=== PATIENT | female | born 1970 | race Hispanic/Latino ===

== ENCOUNTER 2019-05-04 04:08 | Emergency (ER) | payer MEDICARE ==
[2019-05-04 04:32] LABS: BASOPHILS % (AUTO) 0.6 % (0.0-5.0); EOSINOPHILS % (AUTO) 2.6 % (0.0-8.0); LYMPHOCYTES % (AUTO) 39.2 % (21.0-51.0); MEAN CORPUSCULAR HEMOGLOBIN 30.1 pg (27.0-33.0); MEAN CORPUSCULAR HGB CONC 34.3 g/dL (32.0-36.0); MEAN CORPUSCULAR VOLUME 87.7 fL (79-99); MONOCYTES % (AUTO) 8.3 % (3.0-13.0); NEUTROPHILS % (AUTO) 49.2 % (40.0-77.0); PLATELET COUNT (AUTO) 254 K/uL (130-400); RED BLOOD CELL COUNT(AUTO) 4.79 MIL/uL (4.00-5.50); RED CELL DISTRIBUTION WIDTH 12.4 % (11.0-15.5)
[2019-05-04] MEDS ORDERED: ASPIRIN 325 MG TABLET ONE (04:34)
[2019-05-04] MEDS ORDERED: FAMOTIDINE/PF 20 MG/2 ML VIAL IV ONE (04:35)
[2019-05-04 04:44] LABS: CREATININE 0.7 mg/dL (0.5-1.5); POTASSIUM 3.8 mmol/L (3.5-5.1)
[2019-05-04 04:45] LABS: INR 0.96 (0.85-1.15); PARTIAL THROMBOPLASTIN TIME 25.7 SEC (26.3-35.5); PROTHROMBIN TIME 10.1 SEC (9.6-11.6)
[2019-05-04 04:48] LABS: ALBUMIN 3.7 g/dL (3.5-5.0); BILIRUBIN,TOTAL 0.3 mg/dL (0.2-1.0); TOTAL PROTEIN, SERUM 7.7 g/dL (6.0-8.3)
[2019-05-04] MEDS ORDERED: ORPHENADRINE CITRATE 30 MG/ML ML ONE (05:23)
== END 2019-05-04 06:49 | disposition home or self-care (01) ==
LOC: EDH 04:08
DX: R07.89 Other chest pain (principal); R10.13 Epigastric pain; E11.9 Type 2 diabetes mellitus without complications; I10 Essential (primary) hypertension; I25.10 Atherosclerotic heart disease of native coronary artery without angina pectoris
CPT/HCPCS: 36415; 71045; 80053; 82550; 83690; 83880; 84484; 85025; 85610; 85730; 93005; 96374; 96375; 99285; J2360; J3490

== ENCOUNTER → 2019-05-28 | Outpatient (CLI) | payer MEDICARE | END | disposition home or self-care (01) | LOC: OIH 13:37 | PROVIDERS: ATTEND Internal Medicine | DX: M19.072 Primary osteoarthritis, left ankle and foot (principal); M19.071 Primary osteoarthritis, right ankle and foot; M77.52 Other enthesopathy of left foot and ankle; M77.51 Other enthesopathy of right foot and ankle; M19.042 Primary osteoarthritis, left hand; M19.041 Primary osteoarthritis, right hand | CPT/HCPCS: 73130; 73630 ==

== ENCOUNTER 2019-09-24 01:05 | Inpatient (IN) | payer MEDICARE ==
[2019-09-24 02:03] LABS: BASOPHILS % (AUTO) 0.2 % (0.0-5.0); HEMATOCRIT 43.5 % (36-48); LYMPHOCYTES % (AUTO) 13.8 % (21.0-51.0); MEAN CORPUSCULAR HEMOGLOBIN 29.8 pg (27.0-33.0); MEAN CORPUSCULAR HGB CONC 33.8 g/dL (32.0-36.0); MEAN CORPUSCULAR VOLUME 88.2 fL (79-99); MONOCYTES % (AUTO) 3.1 % (3.0-13.0); NEUTROPHILS % (AUTO) 82.7 % (40.0-77.0); PLATELET COUNT (AUTO) 191 K/uL (130-400); RED BLOOD CELL COUNT(AUTO) 4.93 MIL/uL (4.00-5.50); RED CELL DISTRIBUTION WIDTH 12.3 % (11.0-15.5); WHITE BLOOD COUNT (AUTO) 4.5 K/uL (4.8-10.8)
[2019-09-24 02:13] LABS: CREATININE 0.8 mg/dL (0.5-1.5); POTASSIUM 5.1 mmol/L (3.5-5.1)
[2019-09-24] MEDS ORDERED: AZITHROMYCIN 500MG+NS 250ML 0 ML IV ONE (03:14)
[2019-09-24] MEDS ORDERED: CEFTRIAXONE SODIUM 1 GM ONE ×2 (03:14→08:07)
[2019-09-24] MEDS ORDERED: INSULIN HUMULIN R 100 UNIT/ML 3ML ONE ×2 (03:14→21:01)
[2019-09-24] MEDS ORDERED: CEFTRIAXONE SODIUM 1 GM IVP SCH (03:15)
[2019-09-24] MEDS ORDERED: SODIUM CHLORIDE 0.9% 1000ML 1,000 ML IV SCH (03:15)
[2019-09-24] MEDS ORDERED: IPRATROPIUM/ALBUTEROL SULFATE 3 ML SOLUTION IH SCH (03:15)
[2019-09-24] MEDS ORDERED: METHYLPREDNISOLONE SOD SUCC 125MG/2ML VIAL IVP SCH (03:15)
[2019-09-24] MEDS ORDERED: DEXTROSE 50%-WATER 50 ML DISP.SYRIN IV PRN (03:15)
[2019-09-24] MEDS ORDERED: GLUCAGON 1MG KIT 1 MG ML IM PRN (03:15)
[2019-09-24] MEDS ORDERED: DEXAMETHASONE SOD PHOSPHATE 10MG/ML 1ML VIAL ONE (03:57)
[2019-09-24] MEDS ORDERED: AZITHROMYCIN 500MG+NS 250ML 250 ML IV SCH (04:00)
[2019-09-24] MEDS ORDERED: DiphenhydrAMINE HCL 50 MG/ML VIAL ONE (04:05)
[2019-09-24] MEDS ORDERED: ENOXAPARIN SODIUM 100 MG/1 ML SQ ONE (04:10)
[2019-09-24] MEDS ORDERED: ZOLPIDEM TARTRATE 5 MG TAB ONE (04:38)
[2019-09-24] MEDS ORDERED: HUMALOG PO SS1 SQ SCH (07:30)
[2019-09-24] MEDS ORDERED: AZITHROMYCIN 500MG+NS 250ML 250 ML IV ONE (08:07)
[2019-09-24] MEDS ORDERED: LORAZEPAM 2 MG/ML 1 ML VIAL ONE (12:36)
[2019-09-24] MEDS ORDERED: TRAZODONE HCL 50 MG TAB ONE ×2 (13:54→21:00)
[2019-09-24] MEDS ORDERED: TRAZODONE HCL 50 MG TAB PO SCH (14:00)
[2019-09-24] MEDS ORDERED: HALOPERIDOL LACTATE 5 MG/ML VIAL ONE (15:09)
[2019-09-24] MEDS ORDERED: HALOPERIDOL LACTATE 5 MG/ML VIAL IM SCH (18:40)
[2019-09-24] MEDS ORDERED: ALBUTEROL INHALER 90MCG/INH IH ONE (20:59)
[2019-09-24] MEDS ORDERED: METHYLPREDNISOLONE SOD SUCC 40MG/ML 1ML ONE (20:59)
[2019-09-25] MEDS ORDERED: CEFTRIAXONE SODIUM 1 GM ONE ×2 (01:42→08:11)
[2019-09-25] MEDS ORDERED: AZITHROMYCIN 500MG+NS 250ML 250 ML IV ONE (01:42)
[2019-09-25] MEDS ORDERED: ENOXAPARIN SODIUM 40 MG/0.4 ML SYRINGE SQ ONE (08:11)
[2019-09-25] MEDS ORDERED: METHYLPREDNISOLONE SOD SUCC 125MG/2ML VIAL ONE (08:11)
[2019-09-25] MEDS ORDERED: TRAZODONE HCL 50 MG TAB ONE ×2 (08:12→19:47)
[2019-09-25] MEDS ORDERED: ENOXAPARIN SODIUM 40 MG/0.4 ML SYRINGE SQ SCH (09:00)
[2019-09-25 09:20] LABS: HEMATOCRIT 41.4 % (36-48); LYMPHOCYTES % (AUTO) 9.3 % (21.0-51.0); MEAN CORPUSCULAR HEMOGLOBIN 29.6 pg (27.0-33.0); MEAN CORPUSCULAR HGB CONC 33.3 g/dL (32.0-36.0); MEAN CORPUSCULAR VOLUME 88.8 fL (79-99); MONOCYTES % (AUTO) 3.6 % (3.0-13.0); NEUTROPHILS % (AUTO) 86.8 % (40.0-77.0); PLATELET COUNT (AUTO) 247 K/uL (130-400); RED BLOOD CELL COUNT(AUTO) 4.66 MIL/uL (4.00-5.50); RED CELL DISTRIBUTION WIDTH 12.4 % (11.0-15.5); WHITE BLOOD COUNT (AUTO) 7.8 K/uL (4.8-10.8)
[2019-09-25 09:38] LABS: ALBUMIN 2.8 g/dL (3.5-5.0); BILIRUBIN,TOTAL 0.2 mg/dL (0.2-1.0); CREATININE 0.7 mg/dL (0.5-1.5); POTASSIUM 4.2 mmol/L (3.5-5.1); TOTAL PROTEIN, SERUM 7.3 g/dL (6.0-8.3)
--- NOTE | 2019-09-25 13:52 | NUR ---
CHART CHECK COMPLETED. Pt IS A 48 Y.O. FEMALE ADMITTED SECONDARY TO COVID PNEUMONIA. Pt HAS A PAST MEDICAL HISTORY SIGNIFICANT FOR OBESITY, DIABETES MELLITUS, HYPERTENSION, CAD, DEPRESSION, PTCA, CARDIAC CATH. Pt WITH DIET IN PLACE AT THIS TIME. PLEASE REQUEST FORMAL SKILLED SPEECH/SWALLOW EVALUATION IF Pt PRESENTS WITH +S/S OF ASPIRATION. Addendum: 09/25/19 at [address] Amended: Links added.
[2019-09-25] MEDS ORDERED: METHYLPREDNISOLONE SOD SUCC 40MG/ML 1ML ONE (19:47)
[2019-09-26] MEDS ORDERED: AZITHROMYCIN 500MG+NS 250ML 250 ML IV ONE (03:24)
[2019-09-26] MEDS ORDERED: CEFTRIAXONE SODIUM 1 GM ONE (03:25)
[2019-09-26] MEDS ORDERED: METHYLPREDNISOLONE SOD SUCC 125MG/2ML VIAL ONE (08:30)
== END 2019-09-26 17:02 | disposition home or self-care (01) | DRG 177 ==
LOC: EDH 01:05 → EDHIP 02:40
PROVIDERS: ADMIT Internal Medicine Infectious Disease; ATTEND Internal Medicine Infectious Disease
DX: U07.1 COVID-19 (principal); J96.91 Respiratory failure, unspecified with hypoxia; J18.9 Pneumonia, unspecified organism; E11.9 Type 2 diabetes mellitus without complications; I10 Essential (primary) hypertension; I25.10 Atherosclerotic heart disease of native coronary artery without angina pectoris; E66.9 Obesity, unspecified; F32.9 Major depressive disorder, single episode, unspecified; Z95.5 Presence of coronary angioplasty implant and graft; Z83.3 Family history of diabetes mellitus
CPT/HCPCS: 36415; 71045; 71250; 80048; 80053; 82948; 84484; 85025; 85378; 86900; 86901; 93005; 99291; G0378; J0456; J0696; J1100; J1200; J1630; J1650; J1815; J2060; J2920; J2930

== ENCOUNTER 2021-04-11 23:01 | Emergency (ER) | payer OTHER, MEDICARE ==
[~2021-04-11] VITALS: Ht 162.6 cm; Wt 76.2 kg
[2021-04-11 23:04] VITALS: BP 162/68
== END 2021-04-12 03:18 | disposition left against medical advice (07) ==
LOC: EDH 23:01
DX: R00.2 Palpitations (principal); Z53.21 Procedure and treatment not carried out due to patient leaving prior to being seen by health care provider
CPT/HCPCS: 93005

== ENCOUNTER 2021-08-11 03:51 | Emergency (ER) | payer OTHER, MEDICARE ==
[~2021-08-11] VITALS: Ht 154.9 cm; Wt 92.1 kg
[2021-08-11 04:15] VITALS: BP 152/86
== END 2021-08-11 04:44 | disposition home or self-care (01) ==
LOC: EDH 03:51
DX: J02.8 Acute pharyngitis due to other specified organisms (principal); Z20.822 Contact with and (suspected) exposure to COVID-19; M19.90 Unspecified osteoarthritis, unspecified site; E11.9 Type 2 diabetes mellitus without complications; E78.00 Pure hypercholesterolemia, unspecified; I10 Essential (primary) hypertension; G43.909 Migraine, unspecified, not intractable, without status migrainosus; M79.7 Fibromyalgia; Z98.890 Other specified postprocedural states
CPT/HCPCS: 87635; 87804 ×2; 87880; 99283; C9803

== ENCOUNTER 2023-02-21 17:23 | Emergency (ER) | payer OTHER, MEDICARE ==
[~2023-02-21] VITALS: Ht 154.9 cm; Wt 90.7 kg
[2023-02-21 17:27] VITALS: BP 165/96; PULSE 89; RESP 18
== END 2023-02-21 18:00 | disposition left against medical advice (07) ==
LOC: EDH 17:23
DX: R07.89 Other chest pain (principal); Z53.21 Procedure and treatment not carried out due to patient leaving prior to being seen by health care provider
CPT/HCPCS: 71045; 93005